=== PATIENT | male | born 1940 | race Caucasian/White ===

== ENCOUNTER 2018-12-02 21:21 | Observation (INO) ==
[2018-12-03 01:11] LABS: Basophils # 0.1 10*3/uL (0.0-0.2); Basophils % 1.7 % (0.0-0.8); Eosinophils # 0.3 10*3/uL (0.0-0.87); Eosinophils % 4.2 % (0.00-10.9); Hematocrit 44.6 VOL% (42.0-52.0); Hemoglobin 14.7 GM/DL (14.0-18.0); Immature Granulocytes % 0.4 %; Immature Granulocytes Absolute 0.03 #; Lymphocytes # 2.6 10*3/uL (1.4-4.0); Lymphocytes % 32.2 % (21.2-54.2); Mean Corpuscular Volume 100.2 FL (87-102); Mean Platelet Volume 13.8 FL (9.6-12.0); Monocytes % 8.7 % (1.7-12.7); Neutrophils % 52.8 % (38.7-73.9); Platelet Count 147 T/CUMM (130-400); Red Blood Count 4.45 MC/CUMM (3.8-5.5); Red Cell Distribution Width 13.1 % (9.3-17.3); White Blood Count 8.1 T/CUMM (4-12)
[2018-12-03] MEDS ORDERED: ALUM/MAG/SIMETH/LIDO VISC 1:1 30 ML BOTTLE PO STA (01:21)
[2018-12-03] MEDS ORDERED: MORPHINE 4 MG/1 ML VIAL IV STA (01:21)
[2018-12-03] MEDS ORDERED: ONDANSETRON 4 MG/2 ML VIAL IV STA (01:21)
[2018-12-03] MEDS ORDERED: ASPIRIN 325 MG TABLET PO STA (01:21)
[2018-12-03] MEDS ORDERED: NITROGLYCERIN 2% OINT 1 INCH/GM PACK TOP STA (01:21)
[2018-12-03 01:24] LABS: Albumin 3.9 G/DL (3.4-5.0); Bilirubin,Total 0.8 MG/DL (0.2-1.0); Calcium 8.9 MG/DL (8.5-10.1); Osmolality,Calculated 283.3 MOS/KG (273-304); Total Protein 6.6 G/DL (6.4-8.3)
[2018-12-03] MEDS ORDERED: MAGNESIUM SULF RIDER 2 GM in PREMIX 1 EACH IV PRN ×2 (01:58→13:47)
[2018-12-03] MEDS ORDERED: NICOTINE 21 MG/24 HR PATCH TRANSDERM PRN (01:58)
[2018-12-03] MEDS ORDERED: BISACODYL 5 MG TABLET PO PRN (01:58)
[2018-12-03] MEDS ORDERED: MAGNESIUM SULF RIDER 4 GM in PREMIX 1 EACH IV PRN (01:58)
[2018-12-03] MEDS ORDERED: POTASSIUM CHLORIDE 20 MEQ TABLET PO PRN (01:58)
[2018-12-03] MEDS ORDERED: ONDANSETRON 4 MG/2 ML VIAL IV PRN (01:58)
[2018-12-03] MEDS ORDERED: MORPHINE 4 MG/1 ML VIAL IV PRN (01:58)
[2018-12-03] MEDS ORDERED: ACETAMINOPHEN 325 MG TABLET PO PRN (01:58)
[2018-12-03 02:01] LABS: INR 0.9; PT Patient Result 10.3 SECS
[2018-12-03 02:28] LABS: Risk Ratio 2.46; Thyroid Stimulating Hormone 1.26 uIU/ml (0.358-3.74); VLDL CHOLESTEROL 12.2 MG/DL
[2018-12-03] MEDS: PANTOPRAZOLE 40 MG TABLET PO SCH (09:54)
[2018-12-03] MEDS: hydroCHLOROthiazide 25 MG TABLET PO SCH (12:12)
[2018-12-03] MEDS: ENOXAPARIN 40 MG/0.4 ML SYRINGE SUBCUT SCH (12:13)
[2018-12-03] MEDS: CLOPIDOGREL 75 MG TABLET PO SCH (12:13)
[2018-12-03] MEDS: ASPIRIN EC 81 MG TABLET PO SCH (12:13)
[2018-12-03] MEDS: LOSARTAN 25 MG TABLET PO SCH ×2 (12:13→21:41)
[2018-12-03] MEDS ORDERED: diphenhydrAMINE CAP 25 MG CAPSULE PO ONE (13:47)
[2018-12-03] MEDS ORDERED: POTASSIUM CHLORIDE RIDER 10 MEQ in PREMIX 1 EACH IV PRN (13:47)
[2018-12-03] MEDS ORDERED: DIAZEPAM 5 MG TABLET PO ONE (13:47)
[2018-12-03] MEDS ORDERED: ATORVASTATIN 20 MG TABLET PO SCH (21:00)
[2018-12-04 05:05] LABS: Basophils # 0.1 10*3/uL (0.0-0.2); Basophils % 0.8 % (0.0-0.8); Eosinophils # 0.5 10*3/uL (0.0-0.87); Eosinophils % 6.8 % (0.00-10.9); Hematocrit 40.5 VOL% (42.0-52.0); Hemoglobin 13.9 GM/DL (14.0-18.0); Immature Granulocytes % 0.3 %; Immature Granulocytes Absolute 0.02 #; Lymphocytes # 2.6 10*3/uL (1.4-4.0); Lymphocytes % 33.6 % (21.2-54.2); Mean Corpuscular HGB Conc 34.3 GM/DL (32-36); Mean Corpuscular Volume 98.8 FL (87-102); Mean Platelet Volume 14.1 FL (9.6-12.0); Neutrophils % 50.5 % (38.7-73.9); Platelet Count 126 T/CUMM (130-400); Red Cell Distribution Width 13.2 % (9.3-17.3); White Blood Count 7.8 T/CUMM (4-12)
[2018-12-04 05:28] LABS: Calcium 8.6 MG/DL (8.5-10.1); Osmolality,Calculated 283.3 MOS/KG (273-304)
[2018-12-04] MEDS ORDERED: diphenhydrAMINE CAP 25 MG CAPSULE PO ONE (07:00)
[2018-12-04] MEDS ORDERED: DIAZEPAM 5 MG TABLET PO ONE (07:00)
[2018-12-04] MEDS ORDERED: HEPARIN/NACL 0.9% 2 UNITS/ML 1,000 ML IV ONE (07:01)
[2018-12-04 07:18] LABS: Eosinophils 3 % (0-10); Lymphocytes 41 % (20-55); Segmented Neutrophils 48 % (50-85); Total Cells Counted 100
[2018-12-04 07:19] LABS: Atypical Lymphocytes Few; Microcytosis Slight; Ovalocytes Slight
[2018-12-04 07:20] LABS: Platelet Estimate Adequate
[2018-12-04] MEDS ORDERED: LIDOCAINE 1% 20 ML VIAL ONE (07:37)
[2018-12-04] MEDS ORDERED: MIDAZOLAM 2 MG/2 ML VIAL ONE (07:37)
[2018-12-04] MEDS ORDERED: SODIUM BICARBONATE 2.4 MEQ/5 ML VIAL ONE (07:37)
[2018-12-04] MEDS ORDERED: fentaNYL 100 MCG/2 ML VIAL ONE (07:38)
[2018-12-04] MEDS ORDERED: ASPIRIN CHEW 81 MG TABLET PO ONE (07:56)
[2018-12-04] MEDS: LOSARTAN 25 MG TABLET PO SCH (09:34)
[2018-12-04] MEDS: ASPIRIN EC 81 MG TABLET PO SCH (09:34)
[2018-12-04] MEDS: CLOPIDOGREL 75 MG TABLET PO SCH (09:34)
[2018-12-04] MEDS: hydroCHLOROthiazide 25 MG TABLET PO SCH (09:34)
[2018-12-04] MEDS: PANTOPRAZOLE 40 MG TABLET PO SCH (09:35)
[2018-12-04] MEDS: ENOXAPARIN 40 MG/0.4 ML SYRINGE SUBCUT SCH (11:05)
[2018-12-04 15:59] VITALS: BP 109/57
== END 2018-12-04 17:33 | disposition home or self-care (01) ==
LOC: N.EDINP 21:21 → N.ED 21:21 → N.TELES 12-03 07:22
PROVIDERS: ADMIT Internal Medicine; ATTEND Internal Medicine
PROC: CLCCHCL (ICD-10-PCS; 2018-12-04 09:15)

== ENCOUNTER 2018-12-23 05:22 | Observation (INO) ==
[2018-12-23] MEDS ORDERED: NITROGLYCERIN 2% OINT 1 INCH/GM PACK TOP STA (06:21)
[2018-12-23] MEDS ORDERED: ONDANSETRON 4 MG/2 ML VIAL IV STA (06:21)
[2018-12-23] MEDS ORDERED: ASPIRIN 325 MG TABLET PO STA (06:21)
[2018-12-23] MEDS ORDERED: MORPHINE 4 MG/1 ML VIAL IV STA (06:21)
[2018-12-23] MEDS ORDERED: ENOXAPARIN 100 MG/ML SYRINGE SUBCUT STA (06:21)
[2018-12-23 06:37] LABS: Basophils # 0.1 10*3/uL (0.0-0.2); Basophils % 1.2 % (0.0-0.8); Eosinophils # 0.4 10*3/uL (0.0-0.87); Eosinophils % 5.1 % (0.00-10.9); Hematocrit 42.9 VOL% (42.0-52.0); Hemoglobin 14.2 GM/DL (14.0-18.0); Immature Granulocytes % 0.4 %; Immature Granulocytes Absolute 0.03 #; Lymphocytes # 2.1 10*3/uL (1.4-4.0); Lymphocytes % 30.1 % (21.2-54.2); Mean Corpuscular HGB Conc 33.1 GM/DL (32-36); Mean Corpuscular Volume 99.3 FL (87-102); Monocytes % 9.6 % (1.7-12.7); Neutrophils % 53.6 % (38.7-73.9); Platelet Count 121 T/CUMM (130-400); Red Blood Count 4.32 MC/CUMM (3.8-5.5); Red Cell Distribution Width 12.8 % (9.3-17.3); White Blood Count 6.9 T/CUMM (4-12)
[2018-12-23 06:46] LABS: PT Patient Result 11.2 SECS; Partial Thromboplastin Time 27.3 SECS (0-40)
[2018-12-23 07:00] LABS: Albumin 3.8 G/DL (3.4-5.0); Bilirubin,Total 1.1 MG/DL (0.2-1.0); Calcium 9.2 MG/DL (8.5-10.1); Osmolality,Calculated 280.4 MOS/KG (273-304); Total Protein 6.8 G/DL (6.4-8.3)
[2018-12-23] MEDS ORDERED: ZALEPLON 5 MG CAPSULE PO PRN (08:43)
[2018-12-23] MEDS ORDERED: MAGNESIUM SULF RIDER 4 GM in PREMIX 1 EACH IV PRN (08:43)
[2018-12-23] MEDS ORDERED: MAGNESIUM SULF RIDER 2 GM in PREMIX 1 EACH IV PRN (08:43)
[2018-12-23] MEDS ORDERED: ACETAMINOPHEN 325 MG TABLET PO PRN (08:43)
[2018-12-23] MEDS ORDERED: ENOXAPARIN 40 MG/0.4 ML SYRINGE SUBCUT SCH (09:00)
[2018-12-23] MEDS ORDERED: PANTOPRAZOLE 40 MG TABLET PO SCH (09:00)
[2018-12-23] MEDS ORDERED: ALPRAZolam 0.5 MG TABLET PO PRN (14:32)
[2018-12-23 15:48] VITALS: BP 149/67
[2018-12-23] MEDS ORDERED: TAMSULOSIN 0.4 MG CAPSULE PO SCH (21:00)
[2018-12-23] MEDS ORDERED: SERTRALINE 25 MG TABLET PO SCH (21:00)
[2018-12-23] MEDS ORDERED: ATORVASTATIN 20 MG TABLET PO SCH (21:00)
[2018-12-23] MEDS ORDERED: LOSARTAN 25 MG TABLET PO SCH (21:00)
[2018-12-23] MEDS ORDERED: busPIRone 10 MG TABLET PO SCH (21:00)
[2018-12-24] MEDS ORDERED: CLOPIDOGREL 75 MG TABLET PO SCH (09:00)
[2018-12-24] MEDS ORDERED: hydroCHLOROthiazide 25 MG TABLET PO SCH (09:00)
[2018-12-24] MEDS ORDERED: FINASTERIDE 5 MG TABLET PO SCH (09:00)
[2018-12-24] MEDS ORDERED: ASPIRIN EC 81 MG TABLET PO SCH (09:00)
[2018-12-24] MEDS ORDERED: CHOLECALCIFEROL 5,000 UNIT TABLET PO SCH (09:00)
== END 2018-12-23 17:38 | disposition home or self-care (01) ==
LOC: N.EDINP 05:22 → N.ED 05:22 → N.TELES 09:07
PROVIDERS: ADMIT Internal Medicine Cardiovascular Disease; ATTEND Internal Medicine Cardiovascular Disease

== ENCOUNTER 2019-02-10 19:59 | Observation (INO) ==
[2019-02-10] MEDS ORDERED: MORPHINE 4 MG/1 ML VIAL IV STA (20:25)
[2019-02-10] MEDS ORDERED: NITROGLYCERIN 2% OINT 1 INCH/GM PACK TOP STA (20:25)
[2019-02-10] MEDS ORDERED: ASPIRIN 325 MG TABLET PO STA (20:25)
[2019-02-10] MEDS ORDERED: ALUM/MAG/SIMETH/LIDO VISC 1:1 30 ML BOTTLE PO STA (20:25)
[2019-02-10] MEDS ORDERED: ONDANSETRON 4 MG/2 ML VIAL IV STA (20:25)
[2019-02-10 20:51] LABS: Basophils # 0.1 10*3/uL (0.0-0.2); Basophils % 1.1 % (0.0-0.8); Eosinophils # 0.2 10*3/uL (0.0-0.87); Eosinophils % 2.9 % (0.00-10.9); Hemoglobin 13.9 GM/DL (14.0-18.0); Immature Granulocytes % 0.4 %; Immature Granulocytes Absolute 0.03 #; Lymphocytes # 2.1 10*3/uL (1.4-4.0); Lymphocytes % 28.1 % (21.2-54.2); Mean Corpuscular HGB Conc 33.1 GM/DL (32-36); Mean Corpuscular Volume 100.7 FL (87-102); Mean Platelet Volume 12.8 FL (9.6-12.0); Monocytes % 8.5 % (1.7-12.7); Platelet Count 131 T/CUMM (130-400); Red Blood Count 4.17 MC/CUMM (3.8-5.5); Red Cell Distribution Width 12.8 % (9.3-17.3); White Blood Count 7.6 T/CUMM (4-12)
[2019-02-10 20:58] LABS: PT Patient Result 10.6 SECS
[2019-02-10 21:12] LABS: Albumin 3.7 G/DL (3.4-5.0); Bilirubin,Total 1.2 MG/DL (0.2-1.0); Total Protein 6.8 G/DL (6.4-8.3)
[2019-02-10] MEDS ORDERED: MORPHINE 4 MG/1 ML VIAL IV PRN (22:34)
[2019-02-10] MEDS ORDERED: SODIUM CHLORIDE 0.9% 1,000 ML IV SCH (22:34)
[2019-02-10] MEDS ORDERED: ONDANSETRON 4 MG/2 ML VIAL IV PRN (22:34)
[2019-02-10] MEDS ORDERED: ENOXAPARIN 80 MG/0.8 ML SYRINGE SUBCUT SCH (22:34)
[2019-02-10] MEDS ORDERED: ACETAMINOPHEN 325 MG TABLET PO PRN (22:34)
[2019-02-11 05:26] LABS: Basophils # 0.1 10*3/uL (0.0-0.2); Eosinophils # 0.3 10*3/uL (0.0-0.87); Eosinophils % 5.2 % (0.00-10.9); Hematocrit 38.1 VOL% (42.0-52.0); Hemoglobin 12.6 GM/DL (14.0-18.0); Immature Granulocytes % 0.3 %; Immature Granulocytes Absolute 0.02 #; Lymphocytes # 2.1 10*3/uL (1.4-4.0); Lymphocytes % 33.4 % (21.2-54.2); Mean Corpuscular HGB Conc 33.1 GM/DL (32-36); Mean Corpuscular Volume 101.9 FL (87-102); Monocytes % 7.6 % (1.7-12.7); Neutrophils % 52.5 % (38.7-73.9); Platelet Count 114 T/CUMM (130-400); Red Blood Count 3.74 MC/CUMM (3.8-5.5); White Blood Count 6.3 T/CUMM (4-12)
[2019-02-11 05:46] LABS: Albumin 3.3 G/DL (3.4-5.0); Bilirubin,Total 1.6 MG/DL (0.2-1.0); Calcium 8.8 MG/DL (8.5-10.1); Osmolality,Calculated 286.8 MOS/KG (273-304); Risk Ratio 2.85; Total Protein 5.9 G/DL (6.4-8.3); VLDL CHOLESTEROL 14.6 MG/DL
[2019-02-11] MEDS ORDERED: TAMSULOSIN 0.4 MG CAPSULE PO SCH (09:00)
[2019-02-11] MEDS ORDERED: ASPIRIN EC 81 MG TABLET PO SCH (09:00)
[2019-02-11] MEDS ORDERED: hydroCHLOROthiazide 25 MG TABLET PO SCH (09:00)
[2019-02-11] MEDS ORDERED: PANTOPRAZOLE 40 MG TABLET PO SCH ×2 (09:00)
[2019-02-11] MEDS ORDERED: CLOPIDOGREL 75 MG TABLET PO SCH (09:00)
[2019-02-11] MEDS ORDERED: busPIRone 10 MG TABLET PO SCH (09:00)
[2019-02-11] MEDS ORDERED: LOSARTAN 25 MG TABLET PO SCH (09:00)
[2019-02-11] MEDS ORDERED: DOCUSATE SODIUM 100 MG CAPSULE PO SCH (09:00)
[2019-02-11] MEDS ORDERED: FINASTERIDE 5 MG TABLET PO SCH (09:00)
[2019-02-11 11:52] VITALS: BP 135/64
[2019-02-11] MEDS ORDERED: POTASSIUM CHLORIDE 20 MEQ TABLET PO SCH (14:30)
[2019-02-11] MEDS ORDERED: ASCORBIC ACID 500 MG TABLET PO SCH (21:00)
[2019-02-11] MEDS ORDERED: ATORVASTATIN 20 MG TABLET PO SCH (21:00)
== END 2019-02-11 15:53 | disposition home or self-care (01) ==
LOC: N.EDINP 19:59 → N.ED 19:59 → N.4E 02-11 02:47
PROVIDERS: ADMIT Family Medicine; ATTEND Family Medicine

== ENCOUNTER 2020-08-09 11:45 | Observation (INO) ==
[2020-08-09 13:56] LABS: Basophils # 0.1 10*3/uL (0.0-0.2); Basophils % 0.9 % (0.0-0.8); Eosinophils # 0.2 10*3/uL (0.0-0.87); Eosinophils % 3.6 % (0.00-10.9); Hematocrit 44.9 VOL% (42.0-52.0); Hemoglobin 14.8 GM/DL (14.0-18.0); Immature Granulocytes % 0.2 %; Immature Granulocytes Absolute 0.01 #; Lymphocytes # 1.1 10*3/uL (1.4-4.0); Lymphocytes % 20.5 % (21.2-54.2); Mean Corpuscular Volume 98.9 FL (87-102); Mean Platelet Volume 12.1 FL (9.6-12.0); Monocytes % 7.9 % (1.7-12.7); Neutrophils % 66.9 % (38.7-73.9); Platelet Count 177 T/CUMM (130-400); Red Blood Count 4.54 MC/CUMM (3.8-5.5); Red Cell Distribution Width 12.7 % (9.3-17.3); White Blood Count 5.3 T/CUMM (4-12)
[2020-08-09 14:07] LABS: PT Patient Result 11.1 SECS (9.8-11.9); Partial Thromboplastin Time 30.3 SECS (23.9-33.8)
[2020-08-09 14:20] LABS: Barbiturates Screen,Urine Negative (Negative); Benzodiazepines Screen,Urine Negative (Negative); Cannabinoid Screen,Urine Negative (Negative); Opiate Screen,Urine Negative (Negative); Phencyclidine Screen,Urine Negative (Negative)
[2020-08-09 14:26] LABS: Alanine Aminotransferase 19 U/L (16-61); Albumin 3.7 G/DL (3.4-5.0); Alkaline Phosphatase 131 U/L (45-117); Aspartate Amino Transferase 12 U/L (0-37); Blood Urea Nitrogen 16 MG/DL (7-18); Calcium 8.9 MG/DL (8.5-10.1); Carbon Dioxide 28 MMOL/L (21-32); Estimated Glom Filtration Rate 89 ML/MIN; Glucose 99 MG/DL (74-106); Osmolality,Calculated 283.1 MOS/KG (273-304); Potassium 4.5 MMOL/L (3.5-5.1); Sodium 142 MMOL/L (136-145); Total Protein 6.7 G/DL (6.4-8.3)
[2020-08-09] MEDS ORDERED: ONDANSETRON 4 MG/2 ML VIAL IV PRN (15:06)
[2020-08-09] MEDS ORDERED: GLUCAGON 1 MG VIAL IM PRN (15:06)
[2020-08-09] MEDS ORDERED: ACETAMINOPHEN 325 MG TABLET PO PRN (15:06)
[2020-08-09] MEDS ORDERED: DEXTROSE 50% 25 GM/50 ML VIAL IV PRN (15:06)
[2020-08-09] MEDS ORDERED: FLUTICASONE 50 MCG NASAL SPRAY 16 GM BOTTLE BOTH NARES PRN (16:13)
[2020-08-09] MEDS ORDERED: ENOXAPARIN 30 MG/0.3 ML SYRINGE ONE (16:37)
[2020-08-09] MEDS ORDERED: ENOXAPARIN 30 MG/0.3 ML SYRINGE SUBCUT SCH (17:00)
[2020-08-09] MEDS ORDERED: ERGOCALCIFEROL 50,000 UNIT CAPSULE PO SCH (17:00)
[2020-08-09] MEDS: TAMSULOSIN 0.4 MG CAPSULE PO SCH (22:23)
[2020-08-10 05:37] LABS: Basophils # 0.1 10*3/uL (0.0-0.2); Basophils % 1.3 % (0.0-0.8); Eosinophils # 0.3 10*3/uL (0.0-0.87); Eosinophils % 5.7 % (0.00-10.9); Hematocrit 40.3 VOL% (42.0-52.0); Hemoglobin 13.7 GM/DL (14.0-18.0); Immature Granulocytes % 0.2 %; Immature Granulocytes Absolute 0.01 #; Mean Corpuscular Volume 96.2 FL (87-102); Mean Platelet Volume 11.9 FL (9.6-12.0); Monocytes % 8.7 % (1.7-12.7); Neutrophils % 62.1 % (38.7-73.9); Platelet Count 154 T/CUMM (130-400); Red Blood Count 4.19 MC/CUMM (3.8-5.5); Red Cell Distribution Width 12.8 % (9.3-17.3); White Blood Count 4.6 T/CUMM (4-12)
[2020-08-10 05:53] LABS: Calcium 8.9 MG/DL (8.5-10.1); Osmolality,Calculated 282.3 MOS/KG (273-304); Potassium 3.6 MMOL/L (3.5-5.1)
[2020-08-10] MEDS ORDERED: METOPROLOL SUCCINATE XL 50 MG TABLET PO SCH (09:00)
[2020-08-10] MEDS ORDERED: ASPIRIN EC 81 MG TABLET PO SCH (09:00)
[2020-08-10] MEDS ORDERED: amLODIPine 2.5 MG TABLET PO SCH (09:00)
[2020-08-10] MEDS ORDERED: PANTOPRAZOLE 40 MG TABLET PO SCH (09:00)
[2020-08-10] MEDS ORDERED: allopurinoL 100 MG TABLET PO SCH (09:00)
[2020-08-10] MEDS ORDERED: ROSUVASTATIN 10 MG TABLET PO SCH (09:00)
[2020-08-10] MEDS: TAMSULOSIN 0.4 MG CAPSULE PO SCH (09:20)
[2020-08-10 09:37] VITALS: BP 143/88
== END 2020-08-10 11:59 | disposition home health service (06) ==
LOC: N.EDINP 11:45 → N.ED 11:45 → N.TELEN 20:37
PROVIDERS: ADMIT Internal Medicine Geriatric Medicine; ATTEND Internal Medicine Geriatric Medicine